=== PATIENT | male | born 1985 | race Caucasian/White ===

== ENCOUNTER 2019-03-17 15:46 | Inpatient (IN) | payer OTHER ==
[~2019-03-17] VITALS: Ht 182.9 cm; Wt 79.0 kg
--- NOTE | ~2019-03-17 | EKG ---
[place], [place] ELECTROCARDIOGRAM REPORT NAME: ELTON MCKEON UNIT #: [id number] ROOM: [facility] DOCTOR: JOAQUIN DRAFT REPORT BIRTHDATE: [birth year] [facility] Test Date: 2019-03-17 Test Time: 16:35:19 Pat Name: ELTON MCKEON Department: Room: [facility] 1 Gender: M Healthcare Management: Denise Carnes : 1985 Requested By: TEVIN GONZALEZ Order Number: [id number] Reading MD: Erickson Hunt MD Measurements Intervals [place] Rate: 58 P: 24 CT: 146 QRS: 61 QRSD: 88 T: 33 QT: 413 QTc: 406 Interpretive Statements Sinus rhythm LVH by voltage Lateral infarct, acute Anterior ST elevation, probably due to LVH No previous ECG available for comparison Electronically Signed On 03-19-2019 13:12:12 PDT by Erickson Hunt MD CM:EKGRPT:ELECTROCARDIOGRAM REPORT [id number] TEVIN NUÑEZ DRAFT REPORT TEVIN GONZALEZ
[2019-03-17 15:48] VITALS: BP 116/57
[2019-03-17 16:09] LABS: BASO # 0.1 10*3/uL (0.0-0.1); BASO % 0.6 % (0.0-1.0); EOS # 0.3 10*3/uL (0.0-0.4); EOS % 3.7 % (1.0-4.0); HEMATOCRIT 40.4 % (42.0-52.0); LYMPH # 2.6 10*3/uL (1.3-4.4); MEAN CELL VOLUME 93.5 fl (80.0-94.0); MEAN CORPUSCULAR HGB 30.1 pg (27.0-31.0); MEAN CORPUSCULAR HGB CONC 32.2 g/dl (33.0-37.0); MEAN PLATELET VOLUME 9.3 fl (9.6-12.3); MONO # 0.6 10*3/uL (0.1-1.0); MONO % 7.3 % (3.0-9.0); NEUT # 4.3 10*3/uL (2.3-7.9); NEUT % 55.1 % (47.0-73.0); PLATELET COUNT AUTOMATED 212 10*3/uL (130-400); RED BLOOD COUNT 4.32 10*6/uL (4.50-5.90); RED CELL DISTRI WIDTH 12.2 % (0-14.5); WHITE BLOOD COUNT 7.8 10*3/uL (4.8-10.8)
[2019-03-17 16:25] LABS: ALBUMIN 3.5 gm/dl (3.1-4.5); ALKALINE PHOSPHATASE 63 U/L (45-117); BUN 20 mg/dl (7-24); CHLORIDE 106 mmol/L (98-107); CREATININE 1.11 mg/dL (0.70-1.30); POTASSIUM 4.2 mmol/L (3.5-5.1); SGOT/AST 27 IU/L (3-35); SGPT/ALT 65 U/L (12-78); SODIUM 140 mmol/L (136-145)
[2019-03-17 16:27] LABS: ETHYL ALCOHOL < 3.0 mg/dl (<3)
[2019-03-17 16:40] LABS: URINE AMPHETAMINES < 1000 (1000ng/ml); URINE BARBITURATES > 200 (200ng/ml); URINE BENZODIAZEPINES < 200 (200ng/ml); URINE CANNABINOIDS (THC) < 50 (50ng/ml); URINE COCAINE > 300 (300ng/ml); URINE METHADONE < 300 (300ng/ml); URINE OPIATES > 300 (300ng/ml)
--- NOTE | 2019-03-17 16:40 | NUR ---
33 year old MALE admitted to room # 501 for stabilization. 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 Compliant with admission procedure. Patient denies WITHDRAWAL SYMPTOMS AT THE TIME OD ADMISSION DUE TO DRUG USE THIS MORNING. See assessment forms for additional information about patient status.
[2019-03-17 16:41] LABS: URINE PHENCYCLIDINE < 25 (25ng/ml)
--- NOTE | 2019-03-17 16:45 | NUR ---
PATIENT MEETS [facility]. PATIENT IS GOING TO [facility] FOR HIS AFTERCARE PLAN. [place] STAFF WILL FOLLOW UP WITH PATIENT. ONEL SAUCEDO B.A. 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
[2019-03-17 17:01] VITALS: BP 108/71
[2019-03-17 17:19] LABS: BILIRUBIN NEGATIVE (NEGATIVE); BLOOD NEGATIVE (NEGATIVE); CLARITY SL CLOUDY (CLEAR); COLOR YELLOW (YELLOW); GLUCOSE NEGATIVE (NEGATIVE); KETONE NEGATIVE (NEGATIVE); LEUKO ESTERASE NEGATIVE (NEGATIVE); NITRITE NEGATIVE (NEGATIVE); PH 5.5 (5.0-9.0); SPECIFIC GRAVITY >= 1.030 (1.005-1.030); UROBILINOGEN 0.2 E.U./dl (0.2-1.0)
[2019-03-17 17:27] LABS: EPITHELIAL CELLS 0-2
[2019-03-17 17:28] LABS: BACTERIA TRACE
[2019-03-17 20:00] VITALS: BP 104/56
--- NOTE | 2019-03-17 20:47 | NUR ---
PATIENT MEDICATED WITH PRN VISTARIL ORDERED FOR C/O ANXIETY. DENIES ALL OTHER S/S AT THIS TIME. EDUCATED PATIENT ON PRN MEDICATIONS AVAILABLE. CALL LIGHT IS IN REACH
[2019-03-18] VITALS: BP 108/56
[2019-03-18 04:00] VITALS: BP 121/66
[2019-03-18 08:00] VITALS: BP 120/70
--- NOTE | 2019-03-18 08:00 | NUR ---
PT DENIES NEEDS OR ANY SYMPTOMS. WILL CONT TO MONITOR. CALL LIGHT IN REACH.
[2019-03-18 12:00] VITALS: BP 123/69
--- NOTE | 2019-03-18 15:02 | NUR ---
PT DENIES SYMPTOMS AND NEEDS. WILL CONT TO MONITOR. CALL LIGHT IN REACH.
[2019-03-18 16:00] VITALS: BP 136/81
[2019-03-18 20:00] VITALS: BP 132/67
[2019-03-19] VITALS: BP 125/60
[2019-03-19 08:00] VITALS: BP 124/70
[2019-03-19 12:00] VITALS: BP 120/70
[2019-03-19 16:00] VITALS: BP 120/64
[2019-03-19 20:00] VITALS: BP 124/70
[2019-03-20] VITALS: BP 124/55
[2019-03-20 08:00] VITALS: BP 124/70
--- NOTE | 2019-03-20 08:14 | NUR ---
PATIENT WILL BE GOING TO [facility] FOR HIS AFTERCARE PLAN. [place] STAFF WILL CONTACT PATIENT'S INSURANCE TO SET UP TRANSPORTATION FOR TODAY. ONEL SAUCEDO B.A. 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
--- NOTE | 2019-03-20 08:15 | NUR ---
pt resting in bed. no distress noted. will monitor
[2019-03-20] MEDS ORDERED: ATARAX,VISTARIL50 MG PO (09:42)
[2019-03-20] MEDS ORDERED: ROPINIROLE HYD0.5 MG PO (09:42)
[2019-03-20] MEDS ORDERED: ZOFRAN 4 MG ED2 TAB PO (09:42)
[2019-03-20] MEDS ORDERED: METHOCARBAMOL750 M1 PO (09:42)
[2019-03-20] MEDS ORDERED: MOTRIN 600 MG E4 TAB PO (09:42)
[2019-03-20] MEDS ORDERED: DICYCLOMINE HCL20 MG PO (09:42)
--- NOTE | 2019-03-20 09:50 | NUR ---
PT REQUESTED AND GIVEN ROBAXIN FOR MUSCLE ACHES AND VISTARIL FOR ANXIETY WILL MONITOR
--- NOTE | 2019-03-20 11:18 | NUR ---
Discharge instructions reviewed with patient/family. Patient receptive and verbalizes understanding. Follow-up care arranged. Written instructions given to patient/family. GENARO EDWARD
== END 2019-03-20 11:18 | disposition home or self-care (01) | DRG 897 ==
LOC: ED 15:46 → 5E 16:07 → EDHOLD 16:07 → 5E 16:21
PROVIDERS: Nurse Practitioner Family; Student in an Organized Health Care Education/Training Program; ADMIT Emergency Medicine
DX: F11.23 Opioid dependence with withdrawal (principal); F13.10 Sedative, hypnotic or anxiolytic abuse, uncomplicated; F17.210 Nicotine dependence, cigarettes, uncomplicated; D64.9 Anemia, unspecified; F19.90 Other psychoactive substance use, unspecified, uncomplicated; R73.9 Hyperglycemia, unspecified; F41.9 Anxiety disorder, unspecified; Z86.19 Personal history of other infectious and parasitic diseases